=== PATIENT | male | born 1975 | race Caucasian/White ===

== ENCOUNTER 2021-05-02 13:19 | Emergency (ER) | payer OTHER ==
[~2021-05-02] VITALS: Ht 172.7 cm; Wt 86.2 kg
== END 2021-05-02 15:28 | disposition home or self-care (01) ==
LOC: ER 13:19
DX: T83.032A Leakage of nephrostomy catheter, initial encounter (principal)
CPT/HCPCS: 99281

== ENCOUNTER 2021-05-09 11:07 | Emergency (ER) | payer OTHER ==
[~2021-05-09] VITALS: Ht 172.7 cm; Wt 88.5 kg
== END 2021-05-09 11:40 | disposition home or self-care (01) ==
LOC: ER 11:07
DX: Z43.6 Encounter for attention to other artificial openings of urinary tract (principal); Z88.8 Allergy status to other drugs, medicaments and biological substances
CPT/HCPCS: 99282

== ENCOUNTER 2021-05-16 12:19 | Emergency (ER) | payer OTHER ==
[~2021-05-16] VITALS: Ht 172.7 cm; Wt 88.0 kg
== END 2021-05-16 13:40 | disposition home or self-care (01) ==
LOC: ER 12:19
DX: Z43.6 Encounter for attention to other artificial openings of urinary tract (principal); Z88.8 Allergy status to other drugs, medicaments and biological substances
CPT/HCPCS: 99282

== ENCOUNTER 2021-07-05 11:32 | Emergency (ER) | payer OTHER ==
[~2021-07-05] VITALS: Ht 172.7 cm; Wt 81.7 kg
== END 2021-07-05 12:35 | disposition home or self-care (01) ==
LOC: ER 11:32
DX: Z43.6 Encounter for attention to other artificial openings of urinary tract (principal); Z88.8 Allergy status to other drugs, medicaments and biological substances; Z91.018 Allergy to other foods
CPT/HCPCS: 99281